=== PATIENT | male | born 1965 | race Caucasian/White ===

== ENCOUNTER 2019-04-19 18:22 | Emergency (ER) | payer MEDICAID, SELFPAY ==
[2019-04-19 18:45] VITALS: BP 149/96; PULSE 106; RESP 17; TEMP 36.8; O2SAT 98; BMI 24.7
--- NOTE | 2019-04-19 19:01 | W.ED.BACK ---
HPI - Back Pain/Injury General: Chief Complaint: Back Pain/Injury Stated Complaint: BACK PAIN Time Seen by Provider: 04/19/19 18:54 History of Present Illness: HPI Narrative: Patient complains of low back pain left side patient was lifting railroad tie yesterday and pulled his back. Has had this happen many times in the past. Also complains about his left hand hurting from doing all the lifting. Has had 7 surgeries on his left wrist hand. MD elicited complaint: back pain Pertinent past history: prior back pain and back surgery Onset (ago): day(s) Timing: constant Severity: moderate Quality: dull Location: lumbar spine and left lower back Radiation: none Associated symptoms: Deny abdominal pain, chills, fever(s), nausea or vomiting Review of Systems Const: Denies: fever, chills or body aches Eyes: Denies: change in vision or blurry vision ENMT: Denies: throat pain or nasal congestion Card: Denies: chest pain or shortness of breath on exertion Resp: Denies: shortness of breath, productive cough or non-productive cough GI: Denies: abdominal pain, nausea or vomiting : Denies: difficulty urinating Musc: Reports: back pain, extremity pain and joint pain Skin/Breast: Denies: rash Neuro: Denies: headache Psych: Denies: anxiety or depression Kevin/Lymph: Denies: easy bruising PFSH ED PFSH: Statuses (acute, chronic, etc) shown below reflect problem list status as previously entered and may not be historically accurate Social History Smoking and tobacco status: never smoked Physical Exam Const: COMMON NORMALS: no apparent distress, average body habitus and oriented x3 HENMT: COMMON NORMALS: normocephalic HEAD & SCALP: normal to inspection and normocephalic FACE & SINUS: normal facial exam Eye: COMMON NORMALS: conjunctivae normal GENERAL EYE: normal appearance of both eyes CONJUNCTIVA: Yes conjunctivae normal Neck/C-Spine: COMMON NORMALS: no JVD Chest: COMMONS NORMALS: inspection of chest normal Resp: COMMON NORMALS: normal respiratory effort and clear to auscultation bilaterally AUSCULTATION: clear to auscultation bilaterally Cardio: COMMON NORMALS: no JVD, regular rate and regular rhythm RATE: regular rate RHYTHM: regular rhythm GI: COMMON NORMALS: normal to inspection, nondistended, normoactive bowel sounds Back/Pelvis: LUMBAR SPINE/LOWER BACK: Yes straight leg raise positive left (Neuro intact) Straight leg raise positive details left: at 30 degrees Extremity: COMMON NORMALS: normal to inspection and full ROM LEFT UPPER EXTREMITY: Yes wrist (Tender without swelling has full range of motion.) Neuro: COMMON NORMALS: oriented x3 Course Vital Signs: Vital signs: Vital Signs Temperature 98.2 F 04/19/19 18:45 Pulse Rate 106 H 04/19/19 18:45 Respiratory Rate 17 04/19/19 18:45 Blood Pressure 149/96 04/19/19 18:45 Pulse Oximetry 98 04/19/19 18:45 Discharge Plan Discharge Patient Disposition: Home, Self-Care Clinical Impression: Strain of lumbar region, Lumbar radiculopathy Condition: Stable Prescriptions: New cyclobenzaprine 5 mg tablet 5 mg PO TID PRN (Reason: muscle spasm) Qty: 14 RF: 0 No Action ibuprofen 800 mg Tablet 800 mg PO Q6H PRN (Reason: Pain) RF: 0 trazodone 100 mg Tablet 100 mg PO BEDTIME RF: 0 lisinopril 10 mg Tablet 10 mg PO DAILY RF: 0 Discharge Orders: Discharge Order (Routine); Ordered 04/19/19 Ordered By: Trevor Nicolas Referrals: David Martinez [Primary Care Provider] - Discharge Diet: Usual diet Discharge Activity: Limit activity as instructed Patient Instructions: Lumbar Radiculopathy (ED) Activity Restrictions/Additional Instructions: Follow-up with medical provider as directed. Take medications as prescribed. Return to the ER or your medical provider if condition worsens. Please read and understand discharge instructions. If any questions ask please. Do not lift anything over 10 pounds for next 2 to 3 weeks. Apply ice to back. Follow-up with Dr. Taylor as directed. Coding Level of Care Code ED Accounting Clerks Supervisor for Mame Reynolds
--- NOTE | 2019-04-19 19:04 | PC.NURSE ---
REPORT RECEIVED FROM FAITH AVERY AND CARE TRANSFERRED TO FAITH WADDELL
[2019-04-19] MEDS: ketorolac 60 mg/2 mL INJ IM (19:11)
[2019-04-19] MEDS: methylPREDNISolone (DEPO) 80 MG/ML INJ 1 mL IM (19:11)
[2019-04-19 19:26] VITALS: BP 132/113; PULSE 114; RESP 14; O2SAT 97
== END 2019-04-19 19:29 | disposition home or self-care (01) ==
PROVIDERS: Emergency Provider Nurse Practitioner Family; Family Provider Family Medicine; PCP Family Medicine
DX: S39.012A Strain of muscle, fascia and tendon of lower back, initial encounter (principal); M54.16 Radiculopathy, lumbar region; X50.0XXA Overexertion from strenuous movement or load, initial encounter
CPT/HCPCS: 96372; 99281; J1040; J1885

== ENCOUNTER 2019-05-17 08:04 | Emergency (ER) | payer MEDICAID, SELFPAY | END 2019-05-17 09:12 | disposition home or self-care (01) | LOC: ER 05-26 14:47 | PROVIDERS: Emergency Provider Physician Assistant; Family Provider Family Medicine; PCP Family Medicine | DX: M54.16 Radiculopathy, lumbar region (principal) ==

== ENCOUNTER 2019-05-17 08:04 | Emergency (ER) | payer MEDICAID, SELFPAY ==
[2019-05-17 08:06] VITALS: BP 121/81; PULSE 109; RESP 17; O2SAT 99; BMI 26.6
--- NOTE | 2019-05-17 08:11 | PC.NURSE ---
Chronic low back pain. 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 Patient reports previous back injury from fall with chronic pain. He states this pain was worsened by lifting the cart.
--- NOTE | 2019-05-17 08:34 | W.ED.BACK ---
HPI - Back Pain/Injury General: Chief Complaint: Back Pain/Injury Stated Complaint: Back pain Time Seen by Provider: 05/17/19 08:33 History of Present Illness: HPI Narrative: Patient is a 53-year-old male comes to the ED with acute on chronic lower back pain. Patient has a history of chronic back pain. He says that yesterday he was lifting something heavy he thinks that aggravated his lower back pain. last night he started getting the pain radiated down the left leg. Lumbar pain is on the left side of back. Denies any numbness or tingling sensation of the legs. Denies any weakness or pelvic anesthesia. Denies bladder or bowel incontinence. Associated symptoms: Deny abdominal pain, chills, dysuria, fatigue, fever(s), hematuria, nausea or vomiting Review of Systems Const: Denies: fever, chills or fatigue Eyes: Denies: change in vision or eye discomfort ENMT: Denies: throat pain, painful swallowing, nasal discharge or nasal congestion Card: Denies: chest pain, palpitations, edema, swelling of feet/ankles, shortness of breath on exertion or shortness of breath when lying down Resp: Denies: shortness of breath, productive cough or non-productive cough GI: Denies: abdominal pain, nausea, vomiting, diarrhea, constipation or blood in stool : Denies: flank pain, difficulty urinating, painful urination or blood in urine Musc: Reports: back pain; Denies: neck pain or extremity swelling Skin/Breast: Denies: rash or new lesion Neuro: Denies: headache, numbness in extremities or weakness in extremities [facility] ED PFSH: Social History Smoking and tobacco status: never smoked Physical Exam Const: COMMON NORMALS: oriented x3 HENMT: COMMON NORMALS: normocephalic HEAD & SCALP: normocephalic MOUTH: oral and palatal mucosa normal THROAT: posterior oropharynx normal and uvula midline Neck/C-Spine: COMMON NORMALS: supple GENERAL: Yes normal visual inspection Resp: COMMON NORMALS: normal respiratory effort, no retractions, no use of accessory muscles and clear to auscultation bilaterally AUSCULTATION: clear to auscultation bilaterally Cardio: COMMON NORMALS: regular rate, regular rhythm, S1 normal heart sound, S2 normal heart sound, no gallops, no clicks, no murmurs and peripheral pulses 2+ throughout RATE: regular rate RHYTHM: regular rhythm HEART SOUNDS: S1 normal and S2 normal PERIPHERAL PULSES: pulses 2+ throughout GI: COMMON NORMALS: normal to inspection, nondistended, normoactive bowel sounds, soft to palpation, non-tender and no masses PALPATION: Yes soft : COMMON NORMALS: Yes no CVA tenderness BLADDER/KIDNEY EXAM: Yes no CVA tenderness Back/Pelvis: COMMON NORMALS: no CVA tenderness LUMBAR SPINE/LOWER BACK: Yes paraspinal muscle tenderness Extremity: COMMON NORMALS: normal to inspection Neuro: COMMON NORMALS: oriented x3 and moves all extremities Skin: COMMON NORMALS: no rashes or lesions noted GENERAL SKIN EXAM: no rashes or lesions noted Course Vital Signs: Vital signs: Vital Signs Pulse Rate 109 H 05/17/19 08:06 Respiratory Rate 17 05/17/19 08:06 Blood Pressure 121/81 05/17/19 08:06 Pulse Oximetry 99 05/17/19 08:06 Discharge Plan Discharge Patient Disposition: Home, Self-Care Clinical Impression: Lumbar radiculopathy Condition: Stable Prescriptions: New prednisone 20 mg tablet 20 mg PO TID 5 Days Qty: 15 RF: 0 Robaxin-750 750 mg tablet 750 mg PO Q6H Qty: 20 RF: 0 No Action ibuprofen 800 mg Tablet 800 mg PO Q6H PRN (Reason: Pain) RF: 0 trazodone 100 mg Tablet 100 mg PO BEDTIME RF: 0 lisinopril 10 mg Tablet 10 mg PO DAILY RF: 0 cyclobenzaprine 5 mg tablet 5 mg PO TID PRN (Reason: muscle spasm) Qty: 14 RF: 0 Discharge Orders: Discharge Order (Routine); Ordered 05/17/19 Ordered By: Alberto Gama Referrals: David Martinez [Primary Care Provider] - Discharge Diet: Regular Discharge Activity: Increase activity as tolerated Patient Instructions: Lumbar Radiculopathy (ED) Activity Restrictions/Additional Instructions: Follow-up with your PCP in the next 7 days for reevaluation. Continue taking your previously prescribed ibuprofen 800mg 3 times a day. Take muscle relaxer and prednisone as prescribed. Apply ice or warm compress to lower back to help with symptom relief. Stretch back out daily. Discharge Date/Time: 05/17/19 09:12 Coding Level of Care Code ED Social Work Nurse for Chg Fwd Exam Detailed
--- NOTE | 2019-05-17 08:53 | PC.NURSE ---
Pt noted to be ambulatory to and from the bathroom with no assistance or issues.
[2019-05-17] MEDS: predniSONE 20 mg Tablet 60 MG PO (08:54)
[2019-05-17] MEDS: orphenadrine 30 mg/mL Inj 2 mL 60 MG IM (08:56)
[2019-05-17] MEDS: ketorolac 30 mg/mL INJ IM (08:56)
== END 2019-05-17 09:12 | disposition home or self-care (01) ==
PROVIDERS: Emergency Provider Physician Assistant; Family Provider Family Medicine; PCP Family Medicine
DX: M54.16 Radiculopathy, lumbar region (principal)
CPT/HCPCS: 96372; 99281; 99283; J1885; J2360; J7512

== ENCOUNTER 2019-09-28 06:11 | Day surgery (SDC) | payer MEDICAID, SELFPAY ==
[2019-09-25 11:38] VITALS: BMI 26.1
--- NOTE | 2019-09-28 08:11 | P.ANESASSM_ITS ---
Pre-Anesthetic Assessment Pre-Anesthetic Assessment: Height/Weight: Height 1.68 m Weight 73.482 kg Preop Diagnosis: Bleeding per rectum Proposed Procedure: Operation Date: 09/28/19 09:00 Proposed Procedures p Colonoscopy [id number] Z12.11 K64.9(Not Applicable) - MD matthew Martinez Exam Under Anesthesia(Not Applicable) - Julian Butterfield MD s Poss Hemorroidectomy(Not Applicable) - Julian Butterfield MD Familial anesthetic complications: None Was Beta Shoaib taken within 24 hours: N/A Last intake: Intake Last Liquid Date 09/27/19 Last Liquid Time 20:00 Last Solid Date 09/27/19 Last Solid Time 20:00 Social: Social History: No alcohol and No tobacco Exam: Pre-Anes Outpt Exam: alert, oriented x 3, clear to auscultation bilaterally and regular rate & rhythm Airway: Cervical ROM: WNL MP: 4 Additional comments: missing (poor dentition) Pulmonary: Pulmonary: None reported CV/HEM: CV/HEM: HTN : : None reported Hepatic: Hepatic: Hepatitis (C ) GI: GI: None reported Metabolic: Metabolic: None reported Musc/skel: Musc/skel: None reported Neuropsych: Neuropsych: CVA (BP was 260/190 (stutters now)) Anesthetic Plan: ASA status: 3 Anesthesia: MAC Risk of > 500 ml blood loss (7ml/kg in children): No PFSH Anesthesia PFSH: Medical History Hypertension Family History Denies family history of Anesthesia complication Bleeding disorder Social History Smoking and tobacco status: never smoked Alcohol intake: never Adopted: No Caregiver/support person: Yes Lives independently: Yes Household members: significant other Housing: House Marital status: Single service: No Current occupational exposures/hazards: No Pets and animals: No History of recent travel: No Sexually active: Yes Current gender identity: Female Lilo/Congregational: [employer] Data Anesthesia Cardiac Studies: No Data to Display
[2019-09-28 08:12] VITALS: BP 168/131; PULSE 88; RESP 18; TEMP 37.1; O2SAT 98
[2019-09-28] MEDS: sodium chloride 0.9% 1,000 ML 30 ML IV (08:15)
--- NOTE | 2019-09-28 08:34 | W.PM.OPSUD ---
Surgery/Procedure H&P Update DATE OF PROCEDURE: September 28, 2019 DATE H&P PERFORMED: 09/17/19 H&P UPDATE INFORMATION: I have reviewed H&P completed within last 30 days, I have examined patient prior to procedure and No changes to prior documentation PREOP DIAGNOSIS: Bleeding per rectum PRIMARY INDICATION FOR PROCEDURE: The same PLANNED PROCEDURE: Operation Date: 09/28/19 09:00 Proposed Procedures p Colonoscopy [id number] Z12.11 K64.9(Not Applicable) - Julian Butterfield MD s Exam Under Anesthesia(Not Applicable) - Julian Butterfield MD s Poss Hemorroidectomy(Not Applicable) - Julian Butterfield MD
[2019-09-28] MEDS: labetalol 5 mg/mL SDV 20mL 100 MG (08:35)
[2019-09-28 09:56] VITALS: BP 109/79; PULSE 79; RESP 16; TEMP 36.1; O2SAT 95
[2019-09-28 10:30] VITALS: BP 152/98; PULSE 77; RESP 18; O2SAT 97
== END 2019-09-28 10:40 | disposition home or self-care (01) ==
PROVIDERS: PCP Family Medicine; Visit Provider Surgery
PROC: 0DJD8ZZ Inspection of Lower Intestinal Tract, Via Natural or Artificial Opening Endoscopic (ICD-10-PCS; CPT 45378; principal; 2019-09-28 09:00)
DX: K62.5 Hemorrhage of anus and rectum (principal); K64.4 Residual hemorrhoidal skin tags; I10 Essential (primary) hypertension; B19.20 Unspecified viral hepatitis C without hepatic coma; Z87.820 Personal history of traumatic brain injury
CPT/HCPCS: 12345; 45378; J2001; J2704; J3490; J7030